=== PATIENT | female | born 1940 | race Caucasian/White ===

== ENCOUNTER 2018-11-20 12:41 | Outpatient (CLI) | payer MEDICARE, BC ==
--- NOTE | 2018-11-21 08:34 | DEXA Report ---
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 Regions measured are the AP Spine, femoral neck, and if needed forearm. COMPARISON: 02/18/2017. In accordance with the International Society for Clinical Densitometry (ISCD) guidelines, data from previous exams may be reanalyzed using current recommendations and techniques. This is done to allow a more accurate basis for comparison with the current study. FINDINGS: The data for the lumbar spine is as follows: BMD (g/cm/cm) T-SCORE Z-SCORE REGION L1 0.847 -2.4 -0.7 L2 0.938 -2.2 -0.5 L3 0.907 -2.4 -0.7 L4 0.897 -2.5 -0.8 TOTAL 0.898 -2.3 -0.6 NOTE: All evaluable vertebrae are used for classification The data for the hip is as follows: BMD (g/cm/cm) T-SCORE Z-SCORE REGION Neck 0.596 -3.2 -1.2 TOTAL 0.703 -2.4 -0.6 NOTE: The femoral neck or total proximal femur, whichever is lowest, is used for classification. DXA RESULTS SUMMARY: Spine SCAN DATE AGE BMD CHANGE VS CHANGE VS PREVIOUS PREVIOUS % 11/20[birth year]2018 [age] 0[age]898 0.017 1.9 02/18/2017 76.7 0[age]881 * Denotes significant change at the 95% confidence level. Denotes dissimilar scan types or analysis methods. DXA RESULTS SUMMARY: Hip SCAN DATE AGE BMD CHANGE VS CHANGE VS PREVIOUS PREVIOUS % [birth year]/20[birth year]2018 [age] 0.703 -0.042* -5.6* 02/18/2017 76.7 0[age]745 * Denotes significant change at the 95% confidence level. Denotes dissimilar scan types or analysis methods. IMPRESSION: THE WHO CLASSIFICATION BASED ON THE INTERNATIONAL REFERENCE STANDARD IS OSTEOPOROSIS. THE FRACTURE RISK IS HIGH. RECOMMENDATION: Patients with diagnosis of osteoporosis or osteopenia should have regular bone mineral density assessment. For those eligible for Medicare, routine testing is allowed once every 2 years. Testing frequency can be increased for patients who have rapidly progressing disease or for those who are receiving medical therapy to restore bone mass. COMMENT: World Health Organization (WHO) definitions for osteoporosis and osteopenia: NORMAL BMD: T-score at -1.0 or higher, fracture risk is low OSTEOPENIA BMD: T-score between -1.0 and -2.5, fracture risk is increased. OSTEOPOROSIS BMD: T-score at -2.5 or lower, fracture risk is high. National Osteoporosis Foundation recommends: 1. Obtain adequate dietary calcium (at least 1200 mg per day) and vitamin D (400-800 international units per day). 2. Participate, as appropriate, in regular weightbearing and muscle-strengthening exercise. 3. Avoid tobacco use and reduce alcohol and caffeine intake. 4. For more detailed information see the website at www.NOF.org.
== END 2018-11-20 12:42 | disposition home or self-care (01) ==
LOC: DI 12:41
PROVIDERS: ATTEND Registered Nurse
DX: M81.0 Age-related osteoporosis without current pathological fracture (principal)
CPT/HCPCS: 77080

== ENCOUNTER 2019-12-23 21:09 | Outpatient (CLI) | payer MEDICARE | END 2019-12-23 21:10 | disposition critical access hospital (66) | LOC: EMS 21:09 | PROVIDERS: ATTEND Surgery | DX: S01.01XA Laceration without foreign body of scalp, initial encounter (principal); R41.0 Disorientation, unspecified; R11.0 Nausea; S59.911A Unspecified injury of right forearm, initial encounter; W10.9XXA Fall (on) (from) unspecified stairs and steps, initial encounter; Y92.009 Unspecified place in unspecified non-institutional (private) residence as the place of occurrence of the external cause | CPT/HCPCS: A0425; A0427 ==

== ENCOUNTER 2019-12-23 21:42 | Emergency (ER) | payer BC, MEDICARE ==
--- NOTE | 2019-12-23 21:32 | ED Physician Documentation ---
History of Present Illness - Stated complaint Stated Complaint: FELL DOWN STAIRS, HEAD INJURY, CONFUSED - History obtained from History obtained from: Patient - Additonal information Additional information: 79 y/o f via ambulance after fell down stairs, c/o of head injury and concussion like symptoms, not on blood thinners. Review of Systems Constitutional: reports: Reviewed and negative Eyes: reports: Reviewed and negative Ears: reports: Reviewed and negative Nose: reports: Reviewed and negative Throat: reports: Reviewed and negative Cardiac: reports: Reviewed and negative Respiratory: reports: Reviewed and negative GI: reports: Reviewed and negative : reports: Reviewed and negative Skin: reports: Reviewed and negative Musculoskeletal: reports: Reviewed and negative Neurologic: reports: Headache, Head injury Psychiatric: reports: Reviewed and negative Endocrine: reports: Reviewed and negative Immunocompromised: reports: Reviewed and negative PD PAST MEDICAL HISTORY - Present Medications Home Medications: Ambulatory Orders Medication Instructions Recorded Confirmed amLODIPine [Norvasc] 5 mg PO DAILY 12/23/19 12/23/19 - Allergies Allergies/Adverse Reactions: Allergies Allergy/AdvReac Type Severity Reaction Status Date / Time No Known Drug Allergies Allergy Verified 12/23/19 22:52 PD ED PE NORMAL - Vitals Vital signs reviewed: Yes - General General: Alert and oriented X 3, No acute distress, Well developed/nourished - HEENT HEENT: PERRL, EOMI, Ears normal, Moist mucous membranes, Pharynx benign, Dentition benign, Other (abrasion to upper lip, 2 cm posterior scalp laceration) - Neck Neck: Supple, no meningeal sign, No bony TTP, No adenopathy, Thyroid normal - Cardiac Cardiac: RRR, No murmur, Strong equal pulses - Respiratory Respiratory: No respiratory distress, Clear bilaterally - Abdomen Abdomen: Normal bowel sounds, Soft, Non tender, Non distended, No organomegaly - Back Back: No CVA TTP, No spinal TTP - Derm Derm: Normal color, Warm and dry, No rash, Other (multiple abrasions on b/l upper and lower extremities) - Extremities Extremities: No deformity, No tenderness to palpate, Normal ROM s pain, No edema, No calf tenderness / cord - Neuro Neuro: Alert and oriented X 3, 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, No motor deficit, No sensory deficit, Normal speech - Psych Psych: Normal mood, Normal affect Results - Vitals Vitals: Vital Signs - 24 hr 12/23/19 12/23/19 12/23/19 21:45 23:27 23:41 Temperature 36.6 C Heart Rate 75 72 71 Respiratory 18 14 16 Rate Blood Pressure 142/76 H 135/70 H O2 Saturation 98 94 95 12/24/19 12/24/19 00:00 01:00 Temperature Heart Rate 69 72 Respiratory 15 16 Rate Blood Pressure 134/73 H 132/73 H O2 Saturation 94 95 Oxygen O2 Source Room air - EKG (time done) 22:33 Rate: Other (no stemi) - Labs Labs: Laboratory Tests 12/23/19 12/23/19 12/23/19 21:52 21:52 21:52 WBC RBC Hgb Hct MCV MCH MCHC RDW Plt Count MPV Neut # (Auto) Lymph # (Auto) [place] # (Auto) Eos # (Auto) Baso # (Auto) Absolute Nucleated RBC Nucleated RBC % PT 12.4 INR 1.1 APTT 24.8 L Sodium 136 Potassium 3.6 Chloride 98 L Carbon Dioxide 27 Anion Gap 11.0 BUN 19 Creatinine 0.7 Estimated GFR (MDRD) 81 L Glucose 127 H Calcium 9.0 Magnesium 2.4 Total Bilirubin 0.6 AST 20 ALT 21 Alkaline Phosphatase 51 Total Creatine Kinase 119 Troponin I High Sens 5.7 Total Protein 7.0 Albumin 4.2 Globulin 2.8 Albumin/Globulin Ratio 1.5 Lipase 31 Urine Color Urine Clarity Urine pH Ur Specific [place] Urine Protein Urine Glucose (UA) Urine Ketones Urine Occult Blood Urine Nitrite Urine Bilirubin Urine Urobilinogen Ur Leukocyte Esterase Urine RBC Urine WBC Ur Squamous Epith Cells Urine Crystals Urine Bacteria Ur Microscopic Review Urine Culture Comments Salicylates < 6.0 Urine Opiates Screen Ur Oxycodone Screen Urine Methadone Screen Ur Propoxyphene Screen Acetaminophen < 10 L Ur Barbiturates Screen Ur Tricyclics Screen Ur Phencyclidine Scrn Ur Amphetamine Screen U Methamphetamines Scrn U Benzodiazepines Scrn Urine Cocaine Screen U Cannabinoids Screen Ethyl Alcohol < 5.0 12/23/19 12/24/19 21:52 01:30 WBC 8.1 RBC 4.65 Hgb 14.3 Hct 43.9 MCV 94.4 MCH 30.8 MCHC 32.6 RDW 13.3 Plt Count 261 MPV 10.0 Neut # (Auto) 5.0 Lymph # (Auto) 2.1 Liberty # (Auto) 0.9 Eos # (Auto) 0.1 Baso # (Auto) 0.1 Absolute Nucleated RBC 0.00 Nucleated RBC % 0.0 PT INR APTT Sodium Potassium Chloride Carbon Dioxide Anion Gap BUN Creatinine Estimated GFR (MDRD) Glucose Calcium Magnesium Total Bilirubin AST ALT Alkaline Phosphatase Total Creatine Kinase Troponin I High Sens Total Protein Albumin Globulin Albumin/Globulin Ratio Lipase Urine Color YELLOW Urine Clarity CLEAR Urine pH 6.0 Ur Specific [place] 1.020 Urine Protein NEGATIVE Urine Glucose (UA) NEGATIVE Urine Ketones 15 H Urine Occult Blood TRACE-INTA Urine Nitrite NEGATIVE Urine Bilirubin NEGATIVE Urine Urobilinogen 0.2 (NORMAL) Ur Leukocyte Esterase SMALL H Urine RBC 0-5 Urine WBC 0-3 Ur Squamous Epith Cells FEW Squamous Urine Crystals 6-10 Uric Acid Urine Bacteria Few Ur Microscopic Review INDICATED Urine Culture Comments INDICATED Salicylates Urine Opiates Screen NEGATIVE Ur Oxycodone Screen NEGATIVE Urine Methadone Screen NEGATIVE Ur Propoxyphene Screen NEGATIVE Acetaminophen Ur Barbiturates Screen NEGATIVE Ur Tricyclics Screen NEGATIVE Ur Phencyclidine Scrn NEGATIVE Ur Amphetamine Screen NEGATIVE U Methamphetamines Scrn NEGATIVE U Benzodiazepines Scrn NEGATIVE Urine Cocaine Screen NEGATIVE U Cannabinoids Screen NEGATIVE Ethyl Alcohol Procedures - Laceration (location) Scalp Posterior Length in cm: 2 Wound type: Linear Neurovascular status: Sensory intact, Motor intact, Vascular intact Anesthesia: Lidocaine 1% with epi, Volume - enter cc (2) Wound Preparation: Irrigated copiously NS, To the base, Other (galea intact, no FB identified.) Skin layer closure: Bradford, Other (4 annmarie.) Other: Patient tolerated well, Neurovascular intact, Dressing applied, Tetanus UTD Complexity: Simple PD MEDICAL DECISION MAKING - ED course Complexity details: reviewed results, re-evaluated patient, considered differential (closed head injury, scalp laceration), d/w patient, d/w family ED course: imaging is negative, c collar removed using nexus criteria, scalp laceration closed with annmarie. Departure - Departure Disposition: 01 Home, Self Care Clinical Impression: Multiple abrasions Scalp laceration Qualifiers: Encounter type: initial encounter Qualified Code(s): S01.01XA - Laceration without foreign body of scalp, initial encounter Fall Qualifiers: Encounter type: initial encounter Qualified Code(s): W19.XXXA - Unspecified fall, initial encounter Condition: Stable Instructions: ED Laceration Scalp Stitch Or Stap Follow-Up: Rebecca Caldwell ARNP [Primary Care Provider] - 12/24/19 Comments: keep wound clean and protected. follow up with your primary care provider this week for a recheck. have annmarie removed in 10 days. Discharge Date/Time: 12/24/19 02:12
[2019-12-23 22:07] LABS: BASOPHILS # (AUTO) 0.1 10^3/uL (0.0-0.1); BASOPHILS % (AUTO) 0.7 %; EOSINOPHILS # (AUTO) 0.1 10^3/uL (0.0-0.7); EOSINOPHILS % (AUTO) 1.4 %; HGB - HEMOGLOBIN 14.3 g/dL (12.0-16.0); LYMPHOCYTES # (AUTO) 2.1 10^3/uL (1.5-3.5); LYMPHOCYTES % (AUTO) 25.5 %; MEAN CORPUSCULAR HEMOGLOBIN 30.8 pg (27.0-31.0); MEAN CORPUSCULAR HGB CONC 32.6 g/dL (32.0-36.0); MEAN CORPUSCULAR VOLUME 94.4 fL (81.0-99.0); MONOCYTES # (AUTO) 0.9 10^3/uL (0.0-1.0); MONOCYTES % (AUTO) 10.7 %; NEUTROPHILS % (AUTO) 61.1 %; PLT - PLATELET COUNT 261 10^3/uL (130-450); RED BLOOD COUNT 4.65 10^6/uL (4.20-5.40); RED CELL DISTRIBUTION WIDTH 13.3 % (12.0-15.0); WHITE BLOOD COUNT 8.1 x10^3/uL (4.8-10.8)
[2019-12-23 22:12] LABS: INR 1.1 (0.8-1.2); PT - PROTHROMBIN TIME 12.4 secs (9.9-12.6)
[2019-12-23 22:19] LABS: ACETAMINOPHEN < 10 ug/mL (10-30); ALBUMIN 4.2 g/dL (3.2-5.5); ALBUMIN/GLOBULIN RATIO 1.5 (1.0-2.2); ALKALINE PHOSPHATASE 51 IU/L (42-121); ALT ALANINE AMINOTRANSFERASE 21 IU/L (10-60); AST ASPARTATE AMINOTRANSFERASE 20 IU/L (10-42); BILIRUBIN,TOTAL 0.6 mg/dL (0.2-1.0); BUN - BLOOD UREA NITROGEN 19 mg/dL (6-20); CARBON DIOXIDE - CO2 27 mmol/L (21-32); CHLORIDE 98 mmol/L (101-111); CK- CREATINE KINASE 119 IU/L (22-269); CREATININE 0.7 mg/dL (0.4-1.0); GLUCOSE 127 mg/dL (70-100); LIPASE 31 U/L (22-51); MAGNESIUM 2.4 mg/dL (1.7-2.8); SALICYLATE < 6.0 mg/dL; SODIUM 136 mmol/L (135-145)
[2019-12-23 22:20] LABS: PARTIAL THROMBOPLASTIN TIME 24.8 secs (24.9-33.3)
[2019-12-24 01:19] VITALS: BP 132/73
[2019-12-24 01:32] LABS: BILIRUBIN,URINE NEGATIVE (NEGATIVE); GLUCOSE, URINE (UA) NEGATIVE (NEGATIVE); KETONES,URINE (UA) 15 mg/dL (NEGATIVE); LEUKOCYTE ESTERASE, URINE SMALL (NEGATIVE); MUDS CUTOFF CONCENTRATIONS CUTOFF CONC BELOW:; NITRITE,URINE NEGATIVE (NEGATIVE); OCCULT BLOOD,URINE TRACE-INTA (NEGATIVE); PROTEIN,URINE NEGATIVE (NEGATIVE); UROBILINOGEN,URINE 0.2 (NORMAL) E.U./dL (NORMAL)
[2019-12-24 01:33] LABS: CLARITY,URINE CLEAR (CLEAR)
[2019-12-24] MEDS ORDERED: BACITRACIN ZINC OINT 1 PACKET TOP STA ×2 (01:33→01:40)
[2019-12-24] MEDS ORDERED: LIDOCAINE 1%-EPI 1:100000 20 ML MDV SUBQ STA (01:39)
[2019-12-24 01:42] LABS: AMPHETAMINE SCREEN,URINE NEGATIVE (NEGATIVE); BENZODIAZEPINES SCREEN, URINE NEGATIVE (NEGATIVE); COCAINE SCREEN URINE NEGATIVE (NEGATIVE); METHADONE SCREEN, URINE NEGATIVE (NEGATIVE); METHAMPHETAMINES SCREEN, URINE NEGATIVE (NEGATIVE); OPIATE SCREEN, URINE NEGATIVE (NEGATIVE); OXYCODONE SCREEN, URINE NEGATIVE (NEGATIVE); PROPOXYPHENE SCREEN, URINE NEGATIVE (NEGATIVE); TRICYCLIC ANTIDEPRESSANT,URINE NEGATIVE (NEGATIVE)
[2019-12-24 01:44] LABS: BACTERIA,URINE Few /HPF (None Seen); CRYSTALS,URINE 6-10 Uric Acid /LPF; RBC,URINE 0-5 /HPF (0-5); SQUAMOUS EPITHELIAL CELL,UR FEW Squamous (<= Few)
[2019-12-24] MEDS ORDERED: LIDOCAINE 2%-EPI 1:100000 20 ML MDV ONE (01:48)
[2019-12-24] MEDS ORDERED: BACITRACIN ZINC OINT 1 PACKET TOP ONE (01:53)
--- NOTE | 2019-12-24 07:59 | CT Report ---
PROCEDURE: HEAD WO INDICATIONS: fall head injury TECHNIQUE: Noncontrast 4.5 mm thick angled axial sections acquired from the foramen magnum to the vertex. For r adiation dose reduction, the following was used: automated exposure control, adjustment of mA and/or kV according to patient size. COMPARISON: None. FINDINGS: Image quality: Excellent. CSF spaces: Basal cisterns are patent. No extra-axial fluid collections. Ventricles are normal in size and shape. Brain: No midline shift. No intracranial masses or hemorrhage. Reid-white matter interface is norm al. Skull and face: Calvarium and visualized facial bones are intact, without suspicious lesions. Large left parietal scalp hematoma. Sinuses: Visualized sinuses and mastoids are clear. IMPRESSION: Sacral head Reviewed by: Deepa Tirado MD, PhD on 12/24/2019 7:58 AM PDT Approved by: Deepa Tirado MD, PhD on 12/24/2019 7:58 AM PDT Station ID: [id number]
--- NOTE | 2019-12-24 08:08 | CT Report ---
PROCEDURE: CERVICAL SPINE WO INDICATIONS: neck injury TECHNIQUE: Noncontrast 3 mm thick sections acquired from the skull base to the T4 level. Sagittal and coronal r eformats were then constructed. For radiation dose reduction, the following was used: automated exp osure control, adjustment of mA and/or kV according to patient size. COMPARISON: None. FINDINGS: Image quality: Excellent. Bones: No fractures or dislocations. Visualized superior ribs are intact. Spine degenerative disc d isease and facet arthropathy are noted. Soft tissues: Prevertebral soft tissues are normal in thickness. No paravertebral hematomas. No ap ical pneumothoraces. IMPRESSION: No fracture. No acute osseous lesion. If there is continued clinical concern for pathology, then MRI should be considered for further evaluation. Reviewed by: Deepa Tirado MD, PhD on 12/24/2019 8:07 AM PDT Approved by: Deepa Tirado MD, PhD on 12/24/2019 8:07 AM PDT Station ID: [id number]
--- NOTE | 2019-12-24 08:11 | XRAY Report ---
PROCEDURE: Chest 1 View X-Ray INDICATIONS: fall TECHNIQUE: One view of the chest was acquired. COMPARISON: 06/22/2015 FINDINGS: Surgical changes and devices: None. Lungs and pleura: No pleural effusions or pneumothorax. Lungs are clear. Mediastinum: Mediastinal contours appear normal. Heart size is normal. Bones and chest wall: No suspicious bony lesions. Convex right thoracic spine scoliosis. Spine degen erative disc disease. Overlying soft tissues appear unremarkable. IMPRESSION: No acute cardiopulmonary disease process. Reviewed by: Deepa Tirado MD, PhD on 12/24/2019 8:10 AM PDT Approved by: Deepa Tirado MD, PhD on 12/24/2019 8:10 AM PDT Station ID: [id number]
--- NOTE | 2019-12-24 08:12 | XRAY Report ---
PROCEDURE: Pelvis 1 View INDICATIONS: fall pelvic pain TECHNIQUE: 1 view(s) of the pelvis acquired. COMPARISON: None. FINDINGS: Bones: No fractures or dislocations. No suspicious bony lesions. Mild bilateral hip osteoarthritis. Lower lumbar spine degenerative disc changes. Soft tissues: Visualized bowel gas pattern is normal. No suspicious soft tissue calcifications. IMPRESSION: No fracture. No osseous lesion. If there is continued clinical concern for pathology, then repeat wendy in film radiographs (7-10 days) or advanced imaging (CT, MR, bone scan) should be considered for furt her evaluation. Reviewed by: Deepa Tirado MD, PhD on 12/24/2019 8:11 AM PDT Approved by: Deepa Tirado MD, PhD on 12/24/2019 8:11 AM PDT Station ID: [id number]
== END 2019-12-24 02:12 | disposition home or self-care (01) ==
LOC: EDUNIT# → ED 21:42
DX: S01.01XA Laceration without foreign body of scalp, initial encounter (principal); S80.812A Abrasion, left lower leg, initial encounter; S80.811A Abrasion, right lower leg, initial encounter; S40.812A Abrasion of left upper arm, initial encounter; S40.811A Abrasion of right upper arm, initial encounter; W10.9XXA Fall (on) (from) unspecified stairs and steps, initial encounter; I44.4 Left anterior fascicular block; I51.7 Cardiomegaly
CPT/HCPCS: 12001; 36415; 70450; 71045; 72125; 72170; 80053; 80306; 81001; 82550; 83690; 83735; 84484; 85025; 85610; 85730; 87086; 93005; 99282; 99284; A9270; 80307; 80320; 80329; 81003

== ENCOUNTER 2020-01-01 15:45 | Outpatient (CLI) | payer MEDICARE ==
--- NOTE | 2020-01-01 17:08 | XRAY Report ---
PROCEDURE: Knee 3 View RT INDICATIONS: CONTUSION OF RIGHT KNEE, INITIAL ENCOUNTER TECHNIQUE: 3 views of the right knee were acquired. COMPARISON: None. FINDINGS: Bones: No acute fractures or dislocations. No suspicious bony lesions. Degenerative changes are see n with spurring of the medial femorotibial compartment. There is moderate to severe joint space narro wing in the lateral portion of the patellofemoral compartment with subchondral sclerosis and marginal osteophyte formation. Soft tissues: A small joint effusion is present. No suspicious soft tissue calcifications. There is prepatellar soft tissue edema. IMPRESSION: 1. No acute fracture is identified. There is prepatellar soft tissue edema. If symptoms persist, fur ther evaluation with CT or MRI may be obtained. 2. Degenerative changes in the knee are most severe in the anterior compartment. 3. Small joint effusion. Reviewed by: Ronnell Ash MD on 01/01/2020 5:06 PM PDT Approved by: Ronnell Ash MD on 01/01/2020 5:06 PM PDT Station ID: [id number]
== END 2020-01-01 15:46 | disposition home or self-care (01) ==
LOC: DI.S 15:45
PROVIDERS: ATTEND Registered Nurse
DX: S80.01XA Contusion of right knee, initial encounter (principal); M17.11 Unilateral primary osteoarthritis, right knee

== ENCOUNTER 2020-06-16 23:00 | Outpatient (CLI) | payer MEDICARE, BC | END 2020-06-16 23:01 | disposition E | LOC: EMS 23:00 | PROVIDERS: ATTEND Emergency Medicine | DX: I46.9 Cardiac arrest, cause unspecified (principal) | CPT/HCPCS: A0425; A0427 ==

== ENCOUNTER 2020-06-16 23:29 | Emergency (ER) | payer MEDICARE, BC ==
[2020-06-16 23:45] LABS: VBG HCO3 7.5 mmol/L (23-28); VBG OXYGEN SATURATION 92.5 % (60-80); VBG PCO2 47.4 mmHg (41-51); VBG PH 6.815 (7.31-7.41); VBG PO2 107.1 mmHg (25-47); VBG TOTAL CO2 8.9 mmol/L (24-29)
[2020-06-17] LABS: BASOPHILS % (AUTO) 0.2 %; EOSINOPHILS % (AUTO) 42.2 %; HCT - HEMATOCRIT 20.8 % (37.0-47.0); LYMPHOCYTES % (AUTO) 16.4 %; MEAN CORPUSCULAR HEMOGLOBIN 27.4 pg (27.0-31.0); MEAN CORPUSCULAR HGB CONC 29.3 g/dL (32.0-36.0); MEAN CORPUSCULAR VOLUME 93.3 fL (81.0-99.0); MEAN PLATELET VOLUME 9.9 fL (7.9-10.8); MONOCYTES % (AUTO) 2.3 %; NEUTROPHILS % (AUTO) 32.8 %; PLT - PLATELET COUNT 487 10^3/uL (130-450); RED BLOOD COUNT 2.23 10^6/uL (4.20-5.40); WHITE BLOOD COUNT 16.6 x10^3/uL (4.8-10.8)
[2020-06-17 00:02] LABS: HGB - HEMOGLOBIN 6.1 g/dL (12.0-16.0)
[2020-06-17 00:04] LABS: ABNORMAL LYMPHS % (MANUAL) 0 %
[2020-06-17 00:06] VITALS: BP 61/32
[2020-06-17 00:17] LABS: BAND NEUTROPHILS % (MANUAL) 9 %; LYMPHOCYTES # (MANUAL) 4.6 10^3/uL (1.5-3.5); LYMPHOCYTES % (MANUAL) 28 %; METAMYELOCYTES % (MANUAL) 2 %; MONOCYTES # (MANUAL) 0.3 10^3/uL (0.0-1.0); MYELOCYTES % (MANUAL) 7 %; NEUTROPHILS # (MANUAL) 10.1 10^3/uL (1.5-6.6)
--- NOTE | 2020-06-17 00:18 | ED Physician Documentation ---
PD HPI CPR - Stated complaint Stated Complaint: UNRESPONSIVE/ROSC - Chief complaint Chief Complaint: Critical Care - History obtained from History obtained from: EMS - Additional information Additional information: 80-year-old woman brought in by EMS with cardiac arrest witnessed by son who started CPR on scene. EMS continued CPR and gave her 2 doses of epi no shocks administered. On arrival to the emergency department she was in ROSC with low blood pressure, intubated with O2 sat 100% and end-tidal 30. Central line placed at that time and levophed started. 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 : None HEENT: None Psych: None Musculoskeletal: None Derm: None - Past Surgical History Past Surgical History: Yes - Present Medications Home Medications: Ambulatory Orders Medication Instructions Recorded Confirmed amLODIPine [Norvasc] 5 mg PO DAILY 12/23/19 12/23/19 - Allergies Allergies/Adverse Reactions: Allergies Allergy/AdvReac Type Severity Reaction Status Date / Time No Known Drug Allergies Allergy Verified 12/23/19 22:52 - Social History Does the pt smoke?: Yes Smoking Status: Never smoker Does the pt drink ETOH?: Yes Does the pt have substance abuse?: No - Immunizations Immunizations are current?: Yes PD ED PE NORMAL - Vitals Vital signs reviewed: Yes - General General: Other (intubated, eyes fixed/dilated) - HEENT HEENT: Atraumatic, Other (intubated with et tube 20 at lip) - Neck Neck: No bony TTP - Cardiac Cardiac: Other (bradycardic, weak pulses) - Respiratory Respiratory: Other (bilateral breath sounds) - Abdomen Abdomen: Other (distended abdomen) - Derm Derm: Other (pale cool) - Extremities Extremities: No deformity - Neuro Neuro: Other (intubated, unresponsive) - Psych Psych: Other (intubated, unresponsive) Results - Vitals Vitals: Vital Signs - 24 hr 06/16/20 06/16/20 06/16/20 23:46 23:49 23:50 Temperature Heart Rate 71 60 60 Respiratory 18 20 Rate Blood Pressure 127/68 83/47 L O2 Saturation 100 97 06/16/20 06/16/20 06/17/20 23:52 23:55 00:00 Temperature 33.4 C L 33.6 C L Heart Rate 60 58 L 61 Respiratory 20 16 Rate Blood Pressure 70/49 L 70/49 L 68/28 L O2 Saturation 96 92 06/17/20 06/17/20 00:03 00:04 Temperature 33.7 C L 33.7 C L Heart Rate 56 L 70 Respiratory Rate Blood Pressure 61/32 L O2 Saturation 93 Oxygen O2 Source Room air - Labs Labs: Laboratory Tests 06/16/20 06/16/20 23:39 23:39 WBC 16.6 H RBC 2.23 L Hgb 6.1 L* Hct 20.8 L MCV 93.3 MCH 27.4 MCHC 29.3 L RDW 15.0 Plt Count 487 H MPV 9.9 VBG pH 6.815 L VBG pCO2 47.4 VBG pO2 107.1 H VBG HCO3 7.5 L VBG Total CO2 8.9 L VBG O2 Saturation 92.5 H VBG Base Excess -25.0 L PD MEDICAL DECISION MAKING - ED course ED course: Upon discussion with the son he requested withdrawal of care stating that her wishes to be DNR/DNI. Medication/ventilator withdrawn and patient TOD 12:12am 06/17/20. Departure - Departure Disposition: 20 Clinical Impression: Severe anemia, Cardiopulmonary arrest Condition: Critical
[2020-06-17 00:19] LABS: DIFFERENTIAL COMMENT MANUAL DIFFERENTIAL; PLATELET ESTIMATE, MANUAL INCREASED (>450,000) (NORMAL); PLATELET MORPHOLOGY NORMAL APPEARANCE (NORMAL); WBC MORPHOLOGY (MULTIPLE) NORMAL APPEARANCE (NORMAL)
[2020-06-17 00:20] LABS: ACETAMINOPHEN < 10 ug/mL (10-30); ETOH - ETHANOL < 5.0 mg/dL; SALICYLATE < 6.0 mg/dL
[2020-06-17 00:41] LABS: ALBUMIN/GLOBULIN RATIO 0.8 (1.0-2.2); CALCIUM 8.3 mg/dL (8.5-10.3); CREATININE 1.8 mg/dL (0.4-1.0); POTASSIUM 4.6 mmol/L (3.5-5.0); TOTAL PROTEIN 4.6 g/dL (6.7-8.2)
[2020-06-17] MEDS ORDERED: EPINEPHrine ABBOJECT 1 MG/10 ML SYRINGE IVP STA (03:42)
== END 2020-06-17 03:42 | disposition expired ==
LOC: ED 23:29
DX: I46.9 Cardiac arrest, cause unspecified (principal); D64.9 Anemia, unspecified; Z66 Do not resuscitate
CPT/HCPCS: 36415; 36556; 80053; 80307; 82803; 83605; 83690; 84484; 85025; 93005; 94002; 96365; 96375; 99281; 99291; G0480; 80320; 80329; 87040; 94770